=== PATIENT | female | born 1980 | race American Indian/Alaskan Native ===

== ENCOUNTER → 2024-06-12 | Outpatient (CLI) | payer MEDICAID, SELFPAY ==
--- NOTE | 2024-06-12 | XR_ITS ---
Examination: Thoracic spine 3 views Technique one AP lateral coned lateral upper dorsal spine 3 views Exam date and time: June 12, 2024 1222 hours INDICATIONS: Upper back pain beginning 5 days ago. FINDINGS: Moderate osteopenia Mid thoracic levoscoliosis 8 degrees No thoracic fracture Minimal thoracic spondylosis No significant arthritic change IMPRESSION: Minimal thoracic spondylosis
== END | disposition home or self-care (01) ==
PROVIDERS: PCP Registered Nurse Pediatrics; Referring Provider Registered Nurse Pediatrics; Visit Provider Registered Nurse Pediatrics
DX: Z11.1 Encounter for screening for respiratory tuberculosis (principal); M47.814 Spondylosis without myelopathy or radiculopathy, thoracic region
CPT/HCPCS: 72072